=== PATIENT | male | born 1970 | race Caucasian/White ===

== ENCOUNTER 2017-03-19 04:40 | Emergency (ER) | payer SELFPAY ==
[~2017-03-19] VITALS: Ht 185.4 cm; Wt 81.6 kg
[~2017-03-19 04:40] MED LIST: DOLU50TA PO; EMTR1TAB7 PO; METO50TA2 PO; NS IV 1000 ML 1,000 ML ONE; fentaNYL INJECTION 100 MCG/2 ML AMP ONE
[2017-03-19] MEDS ORDERED: ONDANSETRON 4 MG/2 ML (SDV) Z0FRAN ONE (04:46)
--- OUTSIDE RECORDS SUMMARY | 2017-03-19 04:46 | XMS REPORT | CCD ---
Author Author SHEA MORENO Organization Unknown Address [address] [facility] [address] [place], [place] [id number] Care Team Providers Care Top Stitcher Name Role Phone DEMETRIS MEDINA MD Attphys DEMETRIS MEDINA MD Prisurg Vital Signs Unknown or Not Available. Allergies Unknown or Not Available. Procedures Procedure Code Procedure Type Date CBC W/ AUTO DIFF (RFLX MAN DIFF IF IND) 2012611 SNOMED CT 05/29/2015 COMPREHENSIVE METABOLIC PANEL 846692358 SNOMED CT [address] 05/29/[address] 05/29/2015 UA ROUTINE C&S IF IND 402644948 SNOMED CT 05/29/[address] 05/29/[address] 05/29/[address] 05/29/2015 RAPID DRUG SCREEN 622199752 SNOMED CT 05/29/2015 ^CBC W/AUTO DIFF 5875432 SNOMED CT 05/29/2015 ^UA AUTO DIPSTICK ONLY 870521899 SNOMED CT 05/29/2015 History of Immunizations Unknown or Not Available. Problems Problem Code Start Date Resolved Date Status Alcohol toxicity 34248504 Active Results COMPREHENSIVE METABOLIC PANEL - Collect Date/Time: 05/29/2015 15:00 Test Name Code Test Result Test Units Test Ref Range GLUCOSE 2345-7 112 MG/DL L=70 H=100 SODIUM 2951-2 148 MEQ/L L=135 H=148 POTASSIUM 2823-3 3.2 MEQ/L L=3.5 H=5.3 CHLORIDE 2075-0 117 MEQ/L L=96 H=110 CO2 2028-9 21 MEQ/L L=22 H=29 BUN 3094-0 3 MG/DL L=8 H=22 CREATININE 2160-0 0.8 MG/DL L=0.6 H=1.6 SGOT/AST 1920-8 380 IU/L L=10 H=40 SGPT/ALT 1742-6 147 IU/L L=8 H=54 ALK PHOS 6768-6 129 IU/L L=35 H=115 TOTAL PROTEIN 2885-2 6.8 G/DL L=5.5 H=8.5 ALBUMIN 1751-7 3.7 G/DL L=3.1 H=5.4 TOTAL BILI 1975-2 1.0 MG/DL L=0.0 H=1.5 CALCIUM 21656-5 8.3 MG/DL L=8.2 H=10.6 AGE 44 yrs GFR NonAA 105 GFR AA 127 eGFR >60 N/A eGFR AA* >60 N/A LIPASE - Collect Date/Time: 05/29/2015 15:00 Test Name Code Test Result Test Units Test Ref Range LIPASE 3040-3 79 U/L L=8 H=78 ACETAMINOPHEN - Collect Date/Time: 05/29/2015 15:00 Test Name Code Test Result Test Units Test Ref Range ACETAMINOPHEN 3298-7 <0.60 UG/ML ALCOHOL - Collect Date/Time: 05/29/2015 15:00 Test Name Code Test Result Test Units Test Ref Range ETHANOL 5640-8 372 MG/DL RAPID DRUG SCREEN - Collect Date/Time: 05/29/2015 15:20 Test Name Code Test Result Test Units Test Ref Range Cannabinoids (THC) NEGATIVE N/A NEG: < 50 ng/ ml Phencyclidine (PCP) NEGATIVE N/A NEG: < 25 ng/ ml Cocaine NEGATIVE N/A NEG: < 300 ng/ml Methamphetamine NEGATIVE N/A NEG: < 1000 ng/ml Opiates NEGATIVE N/A NEG: < 300 ng/ml Amphetamine NEGATIVE N/A NEG: < 1000 ng/ml Benzodiazepines NON-NEGATIVE N/A NEG: < 300 ng/ ml Tricyclic Antidepres NEGATIVE N/A NEG: < 300 ng/ ml Methadone NEGATIVE N/A NEG: < 300 ng/ml Barbiturates NEGATIVE N/A NEG: < 200 ng/ml Oxycodone NEGATIVE N/A NEG: < 100 ng/ml Propoxyphene (PPX) NEGATIVE N/A NEG: < 300 ng/ ml SALICYLATE - Collect Date/Time: 05/29/2015 15:00 Test Name Code Test Result Test Units Test Ref Range SALICYLATE 4023-8 <5.0 MG/DL L=0.0 H=45.0 CBC W/ AUTO DIFF (RFLX MAN DIFF IF IND) - Collect Date/Time: 05/29/2015 15:00 Test Name Code Test Result Test Units Test Ref Range WBC 79689-3 4.3 TH/CMM L=4.5 H=10.8 RBC 789-8 4.06 ML/CMM L=4.70 H=6.10 HGB 718-7 12.9 G/DL L=14.0 H=18.0 HCT 4544-3 38.0 % L=42.0 H=52.0 MCV 94 FL L=81 H=99 MCH 31.8 PG L=27.0 H=33.0 MCHC 33.9 G/DL L=31.0 H=36.0 RDW SD 53 FL L=36 H=50 RDW CV 15.4 % L=0.0 H=14.8 MPV 11.4 FL L=9.3 H=12.5 PLT 777-3 70 TH/CMM L=130 H=440 NRBC# 0.00 TH/CMM L=0.00 H=0.00 NRBC% 0.0 /100WBC L=0.0 H=2.0 %NEUT 34.3 % %LYMP 52.1 % %MONO 11.1 % %EOS 2.3 % %BASO 0.2 % #NEUT 1.49 TH/CMM L=2.10 H=8.20 #LYMP 2.26 TH/CMM L=0.90 H=5.20 #MONO 0.48 TH/CMM L=0.16 H=1.00 #EOS 0.10 TH/CMM L=0.00 H=0.80 #BASO 0.01 TH/CMM L=0.00 H=0.20 MANUAL DIFF NOT IND N/A UA ROUTINE C&S IF IND - Collect Date/Time: 05/29/2015 15:20 Test Name Code Test Result Test Units Test Ref Range COLOR YELLOW N/A NL: YELLOW APPEARANCE CLEAR N/A NL: CLEAR SPEC GRAV <=1.005 N/A NL: 1.002 - 1.022 pH 6.0 N/A NL: 5 - 9 PROTEIN NEGATIVE N/A NL: NEGATIVE mg/dl GLUCOSE NEGATIVE N/A NL: NEGATIVE mg/dl KETONE NEGATIVE N/A NL: NEGATIVE mg/dl BILIRUBIN NEGATIVE N/A NL: NEGATIVE BLOOD NEGATIVE N/A NL: NEGATIVE NITRITE NEGATIVE N/A NL: NEGATIVE LEUK SCREEN NEGATIVE N/A NL: NEGATIVE MICRO INDICATED? NOT INDICATED N/A AMYLASE - Collect Date/Time: 05/29/2015 15:00 Test Name Code Test Result Test Units Test Ref Range AMYLASE 1798-8 69 IU/L L=25 H=125 Active Medications Medication Code Dose Units Frequency Route Modification Start Date/Time Folic Acid 1MG Oral Tablet 190491 1 TABLET DAILY BY MOUTH 06/02/2015 12:29 Prescription Detail 1 TABLET BY MOUTH DAILY Thiamine HCl 100MG Oral Tablet 903378 1 TABLET DAILY BY MOUTH 06/02/2015 12:29 Prescription Detail 1 TABLET BY MOUTH DAILY Metoprolol Tartrate 50MG Oral Tablet 304797 50 MILLIGRAMS TWO TIMES A DAY ORAL 06/02/2015 12:28 Prescription Detail 50 MILLIGRAMS ORAL TWO TIMES A DAY oxyCODONE HCl 5MG Oral Tablet 6794850 1 TABLET NEEDED EVERY 4 HR BY MOUTH 06/02/2015 12:28 Prescription Detail 1 TABLET BY MOUTH NEEDED EVERY 4 HR Tivicay 50MG Oral Tablet [id number] 50 MILLIGRAMS DAILY ORAL 06/02/2015 12:28 Prescription Detail 50 MILLIGRAMS ORAL DAILY Truvada 200MG-300MG Oral Tablet 256125 1 EACH DAILY ORAL 06/02/2015 12:28 Prescription Detail 1 EACH ORAL DAILY Medications Administered During Visit Unknown or Not Available. Encounters Encounter Diagnosis Diagnosis Code Start Date Pain [id number] 05/29/2015 Social History Smoking Status Code Start Date End Date Never smoker [id number] Patient Decision Aids Unknown or Not Available. Discharge Instructions You were admitted to [facility] on 05/29/2015 with a principal diagnosis of Pain . You were discharged from [facility] on 05/29/2015. Should you have any questions prior to discharge, please contact a member of your healthcare team. If you have left the hospital and have any questions, please contact your primary care physician. Chief Complaint and Reason For Visit Chief Complaint Date of Onset PAIN Function Status Unknown or Not Available. Plan of Care Unknown or Not Available. Referral/Transition of Care Unknown or Not Available.
--- OUTSIDE RECORDS SUMMARY | 2017-03-19 04:46 | XMS REPORT | CCD ---
Author Author BONG BLAIR Organization Unknown Address [address] [facility] [address] [place], [place] [phone] Care Team Providers Care Director Of Clinical Applications Name Role Phone DEMETRIS MEDINA MD Attphys DEMETRIS MEDINA MD Prisurg Vital Signs Unknown or Not Available. Allergies Unknown or Not Available. Procedures Procedure Code Procedure Type Date CBC W/ AUTO DIFF (RFLX MAN DIFF IF IND) 2905836 SNOMED CT 05/29/2015 COMPREHENSIVE METABOLIC PANEL 929198331 SNOMED CT [address] 05/29/[address] 05/29/2015 UA ROUTINE C&S IF IND 126450213 SNOMED CT 05/29/[address] 05/29/[address] 05/29/[address] 05/29/2015 RAPID DRUG SCREEN 894352018 SNOMED CT 05/29/2015 ^CBC W/AUTO DIFF 5791282 SNOMED CT 05/29/2015 ^UA AUTO DIPSTICK ONLY 093536203 SNOMED CT 05/29/2015 History of Immunizations Unknown or Not Available. Problems Problem Code Start Date Resolved Date Status Alcohol toxicity 86759449 Active Results COMPREHENSIVE METABOLIC PANEL - Collect [...] BILI 1975-2 1.0 MG/DL L=0.0 H=1.5 CALCIUM 18401-6 8.3 MG/DL L=8.2 H=10.6 AGE 44 yrs [...] Result Test Units Test Ref Range WBC 61569-2 4.3 TH/CMM L=4.5 H=10.8 RBC 789-8 4.06 [...] Start Date/Time Folic Acid 1MG Oral Tablet 844615 1 TABLET DAILY BY MOUTH 06/02/2015 12:29 Prescription Detail 1 TABLET BY MOUTH DAILY Thiamine HCl 100MG Oral Tablet 377733 1 TABLET DAILY BY MOUTH 06/02/2015 12:29 Prescription Detail 1 TABLET BY MOUTH DAILY Metoprolol Tartrate 50MG Oral Tablet 220767 50 MILLIGRAMS TWO TIMES A DAY ORAL 06/02/2015 12:28 Prescription Detail 50 MILLIGRAMS ORAL TWO TIMES A DAY oxyCODONE HCl 5MG Oral Tablet 9880856 1 TABLET NEEDED EVERY 4 HR BY MOUTH 06/02/2015 12:28 Prescription Detail 1 TABLET BY MOUTH NEEDED EVERY 4 HR Tivicay 50MG Oral Tablet 0844080 50 MILLIGRAMS DAILY ORAL 06/02/2015 12:28 Prescription Detail 50 MILLIGRAMS ORAL DAILY Truvada 200MG-300MG Oral Tablet 922193 1 EACH DAILY ORAL 06/02/2015 12:28 Prescription Detail 1 EACH ORAL DAILY Medications Administered During Visit Unknown or Not Available. Encounters Encounter Diagnosis Diagnosis Code Start Date Pain [id number] 05/29/2015 Social History Smoking Status Code Start Date End Date Never smoker [id number] Patient Decision Aids Unknown or Not Available. Discharge Instructions You were admitted to [facility] on 05/29/2015 with a principal diagnosis of Pain . You were discharged from [facility] on 05/29/2015. Should you have any [...]
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
--- OUTSIDE RECORDS SUMMARY | 2017-03-19 04:48 | XMS REPORT | Continuity of Care Document ---
Author Author [facility] Organization [facility] Address Unknown Phone Unavailable Allergies Active Description Code Type Severity Reaction Onset Reported/Identified Relationship to Patient Clinical Status Yes prochlorperazine [id number] Drug Allergy Unknown N/A 05/19/2015 Medications Problems Date Dx Coded Attending Type Code Diagnosis Diagnosed By 05/23/2015 MILAGROS MCKEON DO, Ot B19.20 UNSPECIFIED VIRAL HEPATITIS C WITHOUT HE 05/23/2015 MILAGROS MCKEON DO Ot B20 HUMAN IMMUNODEFICIENCY VIRUS [HIV] DISEA 05/23/2015 MILAGROS MCKEON DO, Ot D64.9 ANEMIA, UNSPECIFIED 05/23/2015 MILAGROS MCKEON DO, Ot D69.6 THROMBOCYTOPENIA, UNSPECIFIED 05/23/2015 MILAGROS MCKEON DO, Ot E87.1 HYPO-OSMOLALITY AND HYPONATREMIA 05/23/2015 MILAGROS MCKEON DO, Ot E87.6 HYPOKALEMIA 05/23/2015 MILAGROS MCKEON DO Ot F10.129 ALCOHOL ABUSE WITH INTOXICATION, UNSPECI 05/23/2015 MILAGROS MCKEON DO Ot J98.4 OTHER DISORDERS OF LUNG 05/23/2015 MILAGROS MCKEON DO Ot K70.9 ALCOHOLIC LIVER DISEASE, UNSPECIFIED 05/23/2015 MILAGROS MCKEON DO Ot R10.13 EPIGASTRIC PAIN 05/23/2015 MILAGROS MCKEON DO, Ot Y90.8 BLOOD ALCOHOL LEVEL OF 240 MG/100 ML OR 05/26/2015 JOHNATHAN MARTI, KISHA Hughes Ot E87.6 HYPOKALEMIA 05/26/2015 JOHNATHAN MARTI, KISHA Hughes Ot F10.229 ALCOHOL DEPENDENCE WITH INTOXICATION, UN 05/26/2015 JOHNATHAN MARTI, KISHA Hughes Ot F17.211 NICOTINE DEPENDENCE, CIGARETTES, IN MARTHA 05/26/2015 JOHNATHAN MARTI, KISHA Hughes Ot Y90.8 BLOOD ALCOHOL LEVEL OF 240 MG/100 ML OR 05/28/2015 ERIC ZUNIGA DO Ot B19.20 UNSPECIFIED VIRAL HEPATITIS C WITHOUT HE 05/28/2015 ERIC ZUNIGA DO Ot E87.6 HYPOKALEMIA 05/28/2015 ERIC ZUNIGA DO Ot F10.231 ALCOHOL DEPENDENCE WITH WITHDRAWAL DELIR 05/28/2015 ERIC ZUNIGA DO Ot F10.232 ALCOHOL DEPENDENCE W WITHDRAWAL WITH PER 05/28/2015 ERIC ZUNIGA DO Ot F17.210 NICOTINE DEPENDENCE, CIGARETTES, UNCOMPL 05/28/2015 ERIC ZUNIGA DO Ot F43.10 POST-TRAUMATIC STRESS DISORDER, UNSPECIF 05/28/2015 ERIC ZUNIGA DO Ot I10 ESSENTIAL (PRIMARY) HYPERTENSION 05/28/2015 ERIC ZUNIGA DO Ot K21.9 GASTRO-ESOPHAGEAL REFLUX DISEASE WITHOUT 05/28/2015 ERIC ZUNIGA DO Ot K70.10 ALCOHOLIC HEPATITIS WITHOUT ASCITES 05/28/2015 ERIC ZUNIGA DO Ot Y90.8 BLOOD ALCOHOL LEVEL OF 240 MG/100 ML OR 05/28/2015 ERIC ZUNIGA DO Ot Z21 ASYMPTOMATIC HUMAN IMMUNODEFICIENCY VIRU 05/28/2015 ERIC ZUNIGA DO Ot Z59.0 HOMELESSNESS 09/04/2015 HARIS MARTI, MARGARET Ledezma Ot F10.129 ALCOHOL ABUSE WITH INTOXICATION, UNSPECI 09/04/2015 HARIS MARTI, MARGARET Ledezma Ot F43.10 POST-TRAUMATIC STRESS DISORDER, UNSPECIF 09/10/2015 ESEQUIEL KIRKPATRICK RAG CUTTING MACHINE TENDER Ot F10.120 ALCOHOL ABUSE WITH INTOXICATION, UNCOMPL 09/10/2015 ESEQUIEL KIRKPATRICK RAG CUTTING MACHINE TENDER Ot Y90.8 BLOOD ALCOHOL LEVEL OF 240 MG/100 ML OR 09/16/2015 ESEQUIEL KIRKPATRICK RAG CUTTING MACHINE TENDER Ot F10.120 ALCOHOL ABUSE WITH INTOXICATION, UNCOMPL 09/16/2015 ESEQUIEL KIRKPATRICK RAG CUTTING MACHINE TENDER Ot Y90.8 BLOOD ALCOHOL LEVEL OF 240 MG/100 ML OR 09/26/2015 ESEQUIEL KIRKPATRICK RAG CUTTING MACHINE TENDER Ot F10.120 ALCOHOL ABUSE WITH INTOXICATION, UNCOMPL 09/26/2015 ESEQUIEL KIRKPATRICK APRN Ot Y90.8 BLOOD ALCOHOL LEVEL OF 240 MG/100 ML OR 11/24/2015 JOHNATHAN MARTI, KISHA Hughes Ot E87.6 HYPOKALEMIA 11/24/2015 JOHNATHAN MARTI, KISHA Hughes Ot F10.229 ALCOHOL DEPENDENCE WITH INTOXICATION, UN 11/24/2015 JOHNATHAN MARTI, KISHA Hughes Ot F17.211 NICOTINE DEPENDENCE, CIGARETTES, IN MARTHA 11/24/2015 JOHNATHAN MARTI, KISHA Hughes Ot Y90.8 BLOOD ALCOHOL LEVEL OF 240 MG/100 ML OR Procedures Results Encounters ACCT No. Visit Date/Time Discharge Status Pt. Type Provider Facility Loc./Unit Complaint [id number] 06/14/2015 14:17:16 06/14/2015 23: 59:59 CLS Outpatient Elo Sharp [id number] 09/10/2015 19:57:00 2015 22:40:00 DIS Emergency ESEQUIEL KIRKPATRICK APRN [facility] ER [id number] 09/04/2015 00:20:00 2015 03:20:00 DIS Emergency HARIS MARTI, MARGARET Ledezma [facility] ER [id number] 05/26/2015 21:24:00 2015 12:55:00 DIS Inpatient ERIC ZUNIGA DO [facility] ICU [id number] 05/26/2015 09:59:00 2015 14:03:00 DIS Emergency JOHNATHAN MARTI, KISHA Hughes [facility] ER [id number] 05/19/2015 21:04:00 2014 18:30:00 DIS Inpatient MILAGROS MCKEON DO [facility] 4TH [id number] 12/05/2015 10:57:00 Document Registration
[2017-03-19] MEDS ORDERED: fentaNYL INJECTION 100 MCG/2 ML AMP IVP STA (04:50)
[2017-03-19 04:58] LABS: MEAN PLATELET VOLUME 11.7 FL (7.4-10.4); RED BLOOD COUNT 4.32 10^6/uL (4.35-5.85); RED CELL DISTRIBUTION WIDTH 13.1 % (10.0-14.5); WHITE BLOOD COUNT 5.5 10^3/uL (4.3-11.0)
[2017-03-19] MEDS ORDERED: KETAMINE HCL 100 MG/ML 5 ML VIAL ONE (05:01)
[2017-03-19 05:07] LABS: INR 1.2 (0.8-1.4)
[2017-03-19] MEDS ORDERED: HYDROmorphone (DILAUDID) 2 MG/ML VIAL ONE (05:14)
[2017-03-19 05:15] LABS: ALANINE AMINOTRANSFERASE 69 U/L (0-55); ALBUMIN 3.6 GM/DL (3.2-4.5); ALCOHOL < 10 MG/DL (<10); ANION GAP 9 MMOL/L (5-14); ASPARTATE AMINO TRANSFERASE 98 U/L (5-34); BILIRUBIN,DIRECT 0.5 MG/DL (0.0-0.3); BILIRUBIN,INDIRECT 0.6 MG/DL; BILIRUBIN,TOTAL 1.1 MG/DL (0.1-1.0); BLOOD UREA NITROGEN 6 MG/DL (7-18); BUN/CREATININE RATIO 8; CALCIUM 8.8 MG/DL (8.5-10.1); CARBON DIOXIDE 17 MMOL/L (21-32); CHLORIDE 106 MMOL/L (98-107); CREATININE SERUM 0.78 MG/DL (0.60-1.30); GFR ESTIMATED > 60; GLUCOSE 103 MG/DL (70-105); MAGNESIUM 1.8 MG/DL (1.8-2.4); PHOSPHORUS 1.5 MG/DL (2.3-4.7); POTASSIUM 3.9 MMOL/L (3.6-5.0); SODIUM 132 MMOL/L (135-145); TOTAL PROTEIN 6.9 GM/DL (6.4-8.2)
[2017-03-19] MEDS ORDERED: HYDROmorphone (DILAUDID) 2 MG/ML VIAL IVP STA (05:19)
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
[2017-03-19] MEDS ORDERED: NS IV 1000 ML 1,000 ML ONE (05:26)
[2017-03-19] MEDS ORDERED: LORazepam INJ 2 MG/ML (ATIVAN) VIAL ONE (05:44)
[2017-03-19 06:01] VITALS: BP 134/93
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
== END 2017-03-19 06:01 | disposition short-term general hospital (02) ==
LOC: EDUNIT# 04:40 → ER 04:41
DX: S68 Traumatic amputation of wrist, hand and fingers (principal); S67.22XA Crushing injury of left hand, initial encounter; F41.9 Anxiety disorder, unspecified; F43.10 Post-traumatic stress disorder, unspecified; F32.9 Major depressive disorder, single episode, unspecified; I10 Essential (primary) hypertension; B19.20 Unspecified viral hepatitis C without hepatic coma; Z87.891 Personal history of nicotine dependence; Z85.05 Personal history of malignant neoplasm of liver; Z85.07 Personal history of malignant neoplasm of pancreas; Z85.028 Personal history of other malignant neoplasm of stomach; Z90.89 Acquired absence of other organs; V81.4XXA Person injured while boarding or alighting from railway train or railway vehicle, initial encounter
CPT/HCPCS: 36415; 71010; 73130; 80048; 80076; 80320; 83605; 83735; 84100; 85027; 85384; 85610; 85730; 86850; 86900; 86901; 96361; 96374; 96375